=== PATIENT | female | born 1960 | race Two or more races ===

== ENCOUNTER → 2017-03-07 | Outpatient (CLI) | payer OTHER ==
--- NOTE | ~2017-03-07 | MR103 ---
[facility] A Service of [facility] RADIOLOGY TEXT RESULTS PATIENT: PIEDAD WHALEY LOCATION: [facility] : 56 UNIT #: [id number] AGE: [address]: BERT YOU APRN SEX: F ORDER DR: [id number] [facility] [address] [place], [place] [address] [id number] O MR#: [id number] Acc #: [id number] NAME: PIEDAD WHALEY : 1960 SEX: F STUDY DATE/TIME: 03/07/2017 17:58 UNIT: [facility] ROOM: STUDY DESCRIPTION: MR Knee Wo Contrast Lt Attending Physician: Anthony Marin A.R.N.P. Ordering Physician: Staff Doctor Not On Primary Care Physician: Mireille Macias M.D. [facility]ENTER REPORT This report is preliminary unless electronic signature is present. EXAM MRI left knee 03/07/2017 COMPARISON Bilateral knee radiographs 03/02/2017 HISTORY Order states left knee pain, osteoarthritis. History sheet states left anterior knee pain on both sides for 5 to 6 years. Patient has been working on her hands and knees for years. No recent injury or surgery. FINDINGS There is a mild effusion without a popliteal cyst. Patellofemoral alignment is normal. There is low-grade chondromalacia of the median ridge of the patella and patellar mild osteophyte formation. There is moderate and high-grade chondromalacia of the femoral trochlea most prominently affecting the medial facet with femoral trochlear osteophyte formation and subarticular marrow edema. Quadriceps and patellar tendons are intact. There is minimal mucoid degeneration of the ACL with probable intracondylar and notch synovitis. The lateral meniscus, lateral collateral ligament complex, and popliteus tendon are intact. There is low-grade chondromalacia of the posterior superior aspect of the lateral femoral condyle. There is mild nonspecific anterior femoral head-neck marrow edema without etiology demonstrated. A large compartment osteophyte formation is noted. There is advanced medial compartment arthrosis with joint space narrowing, [facility] A Service of [facility] RADIOLOGY TEXT RESULTS PATIENT: PIEDAD WHALEY LOCATION: [facility] : 56 UNIT #: [id number] AGE: [address]: BERT YOU APRN SEX: F ORDER DR: diffuse weightbearing grade 4 chondromalacia, mild subarticular marrow edema and cystic change, and prominent osteophyte formation. There is a mildly complex tear on the posterior horn near the root of the medial meniscus without a displaced meniscal fragment. This predominates as an oblique undersurface tear. The MCL is intact. The medial meniscus is extruded. There is no marrow lesion or fracture. No large loose bodies are noted. There is mild inflammation in the infrapatellar fat pad along the course of the infrapatellar plica. IMPRESSION 1. Advanced medial compartment arthrosis with a mildly complex tear in the posterior horn near the root of the medial meniscus. 2. 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 3. Minimal lateral compartment arthrosis without a meniscus tear. 4. A joint effusion with no sizable loose bodies. 5. Mild mucoid degeneration of the ACL. 6. Joint effusion. Dictated by... Sylvia Olguin M.D. THIS IS AN ELECTRONICALLY VERIFIED REPORT Sylvia Olguin M.D. at 03/09/2017 9:05 AM ERNESTO/allyson TD: 03/08/2017 13:15 JOB #: [id number] MRI CENTER REPORT Page 1 of 1 COPY
== END | disposition home or self-care (01) ==
LOC: CMRI 17:33
DX: M17.12 Unilateral primary osteoarthritis, left knee (principal); M25.562 Pain in left knee; M25.462 Effusion, left knee; M23.222 Derangement of posterior horn of medial meniscus due to old tear or injury, left knee
CPT/HCPCS: 73721